=== PATIENT | female | born 1965 | race Two or more races ===

== ENCOUNTER 2024-04-23 10:32 | Emergency (ER) | payer SELFPAY ==
--- NOTE | 2024-04-23 10:33 | ECG_ITS ---
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 Measurements Intervals [place] Rate: 77 P: 49 AL: 138 QRS: 39 QRSD: 90 T: 24 QT: 369 QTc: 419 Interpretive Statements SINUS RHYTHM NONSPECIFIC T-WAVE ABNORMALITY No previous ECG available for comparison Electronically Signed On 04-23-2024 17:56:24 [employer] SUPERINTENDENT by Bhavesh Ortega M.D. [email or web address] [id number]
--- NOTE | 2024-04-23 10:34 | XR_ITS ---
WS: [id number] XR chest 1V portable [id number] REASON FOR EXAM: Chest pain FINDINGS: Mild tortuosity and ectasia of the thoracic aorta with normal heart size. Calcified granulomatous disease in both hemithoraces. No acute pulmonary parenchymal or pleural abnormality. Mild degenerative spondylosis in the thoracic spine. XR/XR chest 1V portable [id number] IMPRESSION: No acute chest abnormality.
[2024-04-23 10:36] VITALS: BP 140/82; PULSE 79; RESP 16; TEMP 36.6; O2SAT 99
[2024-04-23 11:16] LABS: Basophils % 0.8 %; Eosinophils # 0.1 10^3/uL (0.0-0.8); Eosinophils % 2.5 %; Hematocrit 43.7 % (36-47); Lymphocytes # 2.1 10^3/uL (0.8-4.8); Lymphocytes % 39.8 %; Mean Corpuscular HGB Conc 30.7 g/dL (30-55); Mean Corpuscular Hemoglobin 20.4 pg (27-33); Mean Corpuscular Volume 66.5 fl (85-98); Mean Platelet Volume 10.9 fL (7.4-10.4); Monocytes # 0.3 10^3/uL (0.2-0.9); Monocytes % 4.8 %; Neutrophils # 2.67 10^3/uL (1.8-7.7); Neutrophils % 51.7 %; Nucleated Red Blood Cells % 0 %; Platelet Count 276 10^3/cmm (157-399); Red Blood Count 6.57 10^6/uL (3.85-5.65); Red Cell Distribution Width 17.2 % (12.1-15.1); White Blood Count 5.17 10^3/uL (3.29-11.43)
[2024-04-23 11:33] LABS: Alanine Aminotransferase 18 U/L (0-33); Alkaline Phosphatase 85 U/L (35-105); Anion Gap 18.6 (5-19); Aspartate Amino Transferase 17 U/L (0-32); Blood Urea Nitrogen 16 mg/dL (8-23); Calcium 9.3 mg/dL (8.5-10.5); Carbon Dioxide 24 mmol/L (22-29); Chloride 97 mmol/L (98-107); Creatinine Clr Calc Pharmacy 70.9225; Globulin 3.1 g/dL (1.3-4.6); Glomerular Filtration Rate 63.9 mL/min (90-130); Glucose 171 mg/dL (65-115); Osmolality Calculated 287 mOsm/kg (285-295); Potassium 3.6 mmol/L (3.5-5.1); Sodium 136 mmol/L (136-145); Total Bilirubin 0.6 mg/dL (0.15-1.2); Total Protein 7.1 g/dL (6.6-8.7)
[2024-04-23 11:38] LABS: Troponin(5th) Baseline < 6 ng/L (0-10)
--- NOTE | 2024-04-23 12:33 | ECG_ITS ---
[facility]: 2024-[facility]23 Pat Name: Dorothea Zhang Department: Room: Gender: Female Limnologist: : 1965 Requested By: David Gipson Order Number: [id number] Jose MD: Bhavesh Ortega M.D. Measurements Intervals [place] Rate: 60 P: 52 VT: 140 QRS: 34 QRSD: 80 T: 40 QT: 392 QTc: 394 Interpretive Statements SINUS RHYTHM POSSIBLE LEFT ATRIAL ENLARGEMENT [-0.1mV P-WAVE IN V1/V2] Compared to ECG 04/23/2024 10:46:02 T-wave abnormality no longer present Electronically Signed On 04-23-2024 18:30:30 [employer]LF DRIER OPERATOR by Bhavesh Ortega M.D. [email or web address] [id number]
[2024-04-23 13:11] LABS: Troponin 5 2HR 6.47 ng/L (0-10); Troponin 5 2HR Delta 0.47001 ABS# (0-10)
[2024-04-23 14:14] VITALS: BP 122/69; PULSE 74; O2SAT 95
--- NOTE | 2024-04-23 14:14 | W.ED.CHESTPA ---
HPI - Chest Pain General: Chief Complaint: Chest Pain Stated Complaint: chest pain Time Seen by Provider: 04/23/24 10:34 Source: patient Mode of arrival: ambulatory Limitations: language barrier (Interpreted by absorption operator through the computer.) History of Present Illness: Patient presents to the ER with complaints of chest pressure and tightness that feels like a straight jacket or a big tight hug. It wraps around her chest through her arms through her back. Patient went to the clinic on Sunday she had an EKG and lab work and she thinks they set her up with an appointment for a manual training teacher. They told her if the chest pain comes back to go to the ER for further workup. The chest pain came back today but not quite as strong. The patient is not having the pain currently. She has no cardiac history is never had a heart attack or stroke. Patient also complains of intermittent pain and swelling to her left lower extremity. These do not correlate with the chest pressure or pain. She said she has injured her left side more so in the past. Patient does not have a history of blood clots. Related Data Previous Rx's ?Medication ?Instructions ?Recorded aspirin 325 mg tablet 325 mg PO DAILY #90 tabs 04/23/24 meloxicam 15 mg tablet 15 mg PO DAILY PRN pain #30 tabs 04/23/24 nitroglycerin 0.4 mg sublingual 0.4 mg sublingual Q5M PRN chest 04/23/24 tablet pain #90 tabs Allergies Allergy/AdvReac Type Severity Reaction Status Date / Time No Known Allergies Allergy Verified 04/23/24 10:45 Review of Systems General: Reports: 10 or more systems reviewed and unremarkable except in HPI and below Physical Exam Const: COMMON NORMALS: no acute distress, average body habitus, patient oriented x3, healthy appearing, alert and well nourished HENMT: COMMON NORMALS: normocephalic, atraumatic, hearing grossly normal bilaterally, external ears normal, Normal external nose present, moist oral mucous membranes and oropharynx normal HEAD & SCALP: normocephalic and atraumatic NOSE: Normal external nose present EXTERNAL EAR: Yes external ears normal Neck/C-Spine: COMMON NORMALS: full ROM, no lymphadenopathy, supple, no meningeal signs, no JVD and Thyroid normal THYROID: Thyroid normal Chest: COMMONS NORMALS: normal inspection of the chest and normal palpation of entire chest wall Resp: COMMON NORMALS: normal respiratory effort, No retractions, No use of accessory muscles and clear to auscultation bilaterally AUSCULTATION: clear to auscultation bilaterally Cardio: COMMON NORMALS: no JVD, regular rate, regular rhythm, S1 normal heart sound present, S2 normal heart sound present, No gallops present (Cardio), No clicks present (Cardio), No murmurs present (Cardio) and No rub (Cardio) RATE: regular rate RHYTHM: regular rhythm HEART SOUNDS: S1 normal heart sound present and S2 normal heart sound present GI: COMMON NORMALS: Normal to inspection, nondistended, normoactive bowel sounds present, Soft to palpation, non-tender, No hepatosplenomegaly present and no masses PALPATION: Yes Soft to palpation and Yes No hepatosplenomegaly present Neuro: COMMON NORMALS: patient oriented x3 SENSORIUM/ORIENTATION: Yes alert MENINGEAL SIGNS: Yes no meningeal signs Course Vital Signs: Vital signs: Vital Signs Temperature 97.9 F 04/23/24 10:36 Pulse Rate 79 04/23/24 10:36 Respiratory Rate 16 04/23/24 10:36 Blood Pressure 140/82 04/23/24 10:36 Pulse Oximetry 99 04/23/24 10:36 Oxygen Delivery Me thod Room Air 04/23/24 10:36 MDM - Chest Pain Medical Decision Making With help of spanish interpreter we will perform a history and physical as well as have labs drawn chest x-ray serial EKGs serial troponins, all of which was essentially negative. Initial troponin was six 2-hour troponin was 6.4, no EKG changes, chest x-ray was normal. Says like the patient may have already been referred to the manual training teacher. With a negative workup here. Will discharge patient home on an anti-inflammatory for her leg pain and some nitro for her heart. Patient was informed to follow back up with the clinic or to come back to the ER if she is chest pain worsened and keep her appointment with a manual training teacher. Lab Data I reviewed the patient's lab results. 04/23/24 10:59 04/23/24 10:59 Radiology Impressions Chest X-Ray 04/23/24 10:34 IMPRESSION: No acute chest abnormality. Laboratory Results WBC 5.17 10^3/uL (3.29-11.43) 04/23/24 10:59 RBC 6.57 10^6/uL (3.85-5.65) H 04/23/24 10:59 Hgb 13.40 g/dL (11.27-16.99) 04/23/24 10:59 Hct 43.7 % (36-47) 04/23/24 10:59 MCV 66.5 fl (85-98) L 04/23/24 10:59 MCH 20.4 pg (27-33) L 04/23/24 10:59 MCHC 30.7 g/dL (30-55) 04/23/24 10:59 RDW 17.2 % (12.1-15.1) H 04/23/24 10:59 Plt Count 276 10^3/cmm (157-399) 04/23/24 10:59 MPV 10.9 fL (7.4-10.4) H 04/23/24 10:59 Neut % (Auto) 51.7 % 04/23/24 10:59 Lymph % (Auto) 39.8 % 04/23/24 10:59 Mcmullen % (Auto) 4.8 % 04/23/24 10:59 Eos % (Auto) 2.5 % 04/23/24 10:59 Baso % (Auto) 0.8 % 04/23/24 10:59 Neut # (Auto) 2.67 10^3/uL (1.8-7.7) 04/23/24 10:59 Lymph # (Auto) 2.1 10^3/uL (0.8-4.8) 04/23/24 10:59 Mcmullen # (Auto) 0.3 10^3/uL (0.2-0.9) 04/23/24 10:59 Eos # (Auto) 0.1 10^3/uL (0.0-0.8) 04/23/24 10:59 Baso # (Auto) 0.0 10^3/uL (0.0-0.1) 04/23/24 10:59 Nucleated RBC % (auto) 0 % 04/23/24 10:59 Nucleated RBCs # 0.0 /100WBC 04/23/24 10:59 Sodium 136 mmol/L (136-145) 04/23/24 10:59 Potassium 3.6 mmol/L (3.5-5.1) 04/23/24 10:59 Chloride 97 mmol/L (98-107) L 04/23/24 10:59 Carbon Dioxide 24 mmol/L (22-29) 04/23/24 10:59 Anion Gap 18.6 (5-19) 04/23/24 10:59 BUN 16 mg/dL (8-23) 04/23/24 10:59 Creatinine 0.9 mg/dL (0.5-0.9) 04/23/24 10:59 GFR Calculation 63.9 mL/min (90-130) L 04/23/24 10:59 Glucose 171 mg/dL (65-115) H 04/23/24 10:59 Calculated Osmolality 287 mOsm/kg (285-295) 04/23/24 10:59 Calcium 9.3 mg/dL (8.5-10.5) 04/23/24 10:59 Total Bilirubin 0.6 mg/dL (0.15-1.2) 04/23/24 10:59 AST 17 U/L (0-32) 04/23/24 10:59 ALT 18 U/L (0-33) 04/23/24 10:59 Alkaline Phosphatase 85 U/L (35-105) 04/23/24 10:59 Troponin T Baseline < 6 ng/L (0-10) 04/23/24 10:59 Troponin T 120 Minute 6.47 ng/L (0-10) 04/23/24 12:44 Delta Troponin T 0.43505 ABS# (0-10) 04/23/24 12:44 Total Protein 7.1 g/dL (6.6-8.7) 04/23/24 10:59 Albumin 4.0 g/dL (3.5-5.2) 04/23/24 10:59 Globulin 3.1 g/dL (1.3-4.6) 04/23/24 10:59 All radiology interpretation(s) finalized by discharge Discharge Plan Discharge Patient Disposition: Home Clinical Impression: Leg edema, left Chest pain Qualifiers: Chest pain type: unspecified Qualified Code(s): R07.9 - Chest pain, unspecified Condition: Stable Prescriptions: New meloxicam 15 mg tablet 15 mg PO DAILY PRN (Reason: pain) Qty: 30 0RF nitroglycerin 0.4 mg tablet, sublingual 0.4 mg sublingual Q5M PRN (Reason: chest pain) Qty: 90 0RF Rx Instructions: do not exceed 3 doses per episode aspirin 325 mg tablet 325 mg PO DAILY Qty: 90 0RF Discharge Orders: Discharge ED (Routine); Ordered 04/23/24 Ordered By: David Gipson Referrals: Margarita Reddy DO [Primary Care Provider] - Patient Instructions: Chest Pain (ED), Edema (ED) Activity Restrictions/Additional Instructions: All of your cardiac test through the ER came back normal. This makes it less likely to be cardiac pain. You have already been referred to a manual training teacher Dr. Rodriguez, on May 08, 2024 at 1:30 PM. He had been prescribed 3 medicines please take them all as directed. Please follow-up with your family practice physician within the next 7 days for further evaluation and treatment. If your chest pain continues, worsens or is or changes please feel free to return to the ER for further evaluation. Print Language: Telugu Coding Level of Care Code ED [place] Supervisor for Ivan Mcbride
[2024-04-23 15:10] VITALS: BP 102/54; PULSE 86; O2SAT 96
== END 2024-04-23 15:13 | disposition home or self-care (01) ==
PROVIDERS: Emergency Provider Emergency Medicine; PCP Family Medicine
DX: R60.0 Localized edema (principal); R07.9 Chest pain, unspecified; Z79.82 Long term (current) use of aspirin
CPT/HCPCS: 36415; 71045; 80053; 84484; 85025; 93005; 99285

== ENCOUNTER 2024-08-20 10:54 | Outpatient (CLI) | payer SELFPAY ==
--- NOTE | 2024-08-20 11:10 | XR_ITS ---
WS: [id number] Cervical spine, 5 views including both obliques, 08/20/2024 Clinical Data: NECK BACK PAIN Comparison: None. Findings: No compression fractures are seen. There is degenerative disc narrowing at C5-C6 and C6-C7 with anterior and posterior osteophytes. On the oblique films there is neural foraminal encroachment at C5-C6 and C6-C7 bilaterally. There is facet joint arthritis especially on the left from C4-C5 through C7-T1. There is no prevertebral soft tissue swelling. The odontoid is unremarkable. The soft tissues of the neck and the lung apices are normal. XR/XR cervical spine 4-5V [id number] Impression: 1. Degenerative disc narrowing at C5-C6 and C6-C7 with anterior and posterior o steophytes. 2. Neural foraminal encroachment at C5-C6 and C6-C7. 3. Facet joint arthritis C4-C5 through C7-T1
--- NOTE | 2024-08-20 11:10 | XR_ITS ---
WS: [email or web address] Thoracic spine, 3 views, 08/20/2024 Clinical Data: NECK BACK PAIN Comparison: None. Findings: No compression fractures are seen. The disc heights are normal. There is mild osteoarthritis of the anterior thoracic vertebral bodies. The paravertebral regions are normal. 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
== END 2024-08-20 10:55 | disposition home or self-care (01) ==
PROVIDERS: PCP Family Medicine; Visit Provider Family Medicine
DX: M47.814 Spondylosis without myelopathy or radiculopathy, thoracic region (principal); M48.02 Spinal stenosis, cervical region
CPT/HCPCS: 72050; 72072

== ENCOUNTER 2024-12-23 14:08 | Outpatient (CLI) | payer OTHER, SELFPAY ==
--- NOTE | 2024-12-23 14:30 | MM_ITS ---
WS: [id number] BILATERAL 3D TOMOSYNTHESIS DIGITAL SCREENING MAMMOGRAPHY WITH CAD CLINICAL INFORMATION: SCREENING MAMMOGRAM HISTORY: Screening mammogram. No current complaints. COMPARISON: None available. New baseline. TECHNIQUE: Bilateral CC and MLO views. FINDINGS: Scattered fibroglandular densities bilaterally. Ovoid nodule upper inner RIGHT breast measuring 1.6 cm. Recommend further evaluation with RIGHT breast diagnostic mammography and ultrasound. Unremarkable LEFT breast. MM/MM scr tomosynthesis [id number] IMPRESSION: DENSITY: There are scattered areas of fibroglandular density. BI-RADS: 0 - Incomplete: Need additional imaging evaluation. FOLLOW UP: Need Additional Imaging Recommend RIGHT breast diagnostic mammography and ultrasound.
== END 2024-12-23 14:09 | disposition home or self-care (01) ==
LOC: RAD 14:15
PROVIDERS: PCP Family Medicine; Visit Provider Family Medicine
DX: Z12.31 Encounter for screening mammogram for malignant neoplasm of breast (principal); R92.323 Mammographic fibroglandular density, bilateral breasts; N63.10 Unspecified lump in the right breast, unspecified quadrant
CPT/HCPCS: 77063; 77067

== ENCOUNTER 2025-01-15 10:27 | Outpatient (CLI) | payer SELFPAY ==
--- NOTE | 2025-01-15 10:50 | MM_ITS ---
WS: [id number] RIGHT 3D TOMOSYNTHESIS DIGITAL MAMMOGRAPHY WITH CAD CLINICAL INFORMATION: R ABNORMAL MAMMOGRAM HISTORY: Additional views TECHNIQUE: 3 views of the right breast were obtained. FINDINGS: Scattered fibroglandular densities of the right breast. Persistent ovoid nodule upper inner RIGHT breast measuring 1.6 cm. Ultrasound is pending. ULTRASOUND BREAST RIGHT TECHNIQUE: Ultrasound right breast focused area of concern. CLINICAL INFORMATION: R ABNORMAL MAMMOGRAM FINDINGS: Ultrasound RIGHT breast at the 1 o'clock position 4 cm from the nipple. This demonstrates an ovoid nodule with internal echogenicity likely representing fatty contents. This is probably benign and recommend 6-month follow-up to confirm stability. This may represent a fibroadenolipoma. Biopsy not recommended due to risk of rupture of the internal fat contents with the risk of abscess/infection MM/MM diag RT tomosynthesis [id number] IMPRESSION: DENSITY: There are scattered areas of fibroglandular density. BI-RADS: 3 - Probably Benign. FOLLOW UP: 6 Month Follow-up Recommend 6-month follow-up RIGHT breast diagnostic mammography and ultrasound
== END 2025-01-15 10:28 | disposition home or self-care (01) ==
PROVIDERS: PCP Family Medicine; Visit Provider Family Medicine
DX: R92.8 Other abnormal and inconclusive findings on diagnostic imaging of breast (principal); R92.322 Mammographic fibroglandular density, left breast; N63.41 Unspecified lump in right breast, subareolar
CPT/HCPCS: 76642; 77061; G0279

== ENCOUNTER 2025-02-13 11:11 | Outpatient (CLI) | payer OTHER, SELFPAY ==
--- NOTE | 2025-02-13 11:34 | USCV_ITS ---
Dorothea Zhang Age: 59 Gender: F : 1965 Exam Date: 02/13/2025 11:39 Ordering Phys: Margarita Reddy DO Technologist: DASHAWN [place] [facility] [place]: LEFT LEG PAIN HISTORY: Lower extremity pain. PROCEDURES: Venous duplex imaging was performed in only the left lower extremity. The following venous structures were evaluated: common femoral vein, profunda vein, proximal portion of the greater saphenous vein, superficial femoral vein, and the popliteal vein. In addition, the posterior tibial and peroneal trunk were evaluated. FINDINGS: Normal 2-D Doppler and augmentation and compressibility throughout the lower extremity venous structures. Additional imaging through the proximal calf veins also reveals no thrombus. Limited evaluation of the greater saphenous vein is patent with no thrombus. CONCLUSIONS No evidence of left lower extremity DVT. Franco Pantoja MD (Electronically Signed) Final Date: 13 February 2025 14:55 S
== END 2025-02-13 11:12 | disposition home or self-care (01) ==
LOC: RAD 11:18
PROVIDERS: PCP Family Medicine; Visit Provider Family Medicine
DX: M79.89 Other specified soft tissue disorders (principal); M79.662 Pain in left lower leg
CPT/HCPCS: 93971

== ENCOUNTER 2025-02-24 15:10 | Outpatient (CLI) | payer OTHER, SELFPAY ==
--- NOTE | 2025-02-24 16:00 | XRR_ITS ---
PROCEDURE INFORMATION: Exam: XR Bilateral Hips Exam date and time: 02/24/2025 4:10 PM Age: 59 years old Clinical indication: Hip pain; Bilateral; Additional info: Bilateral hip pain TECHNIQUE: Imaging protocol: Radiologic exam of the bilateral hips. Views: 2 views of hips with pelvis when performed. COMPARISON: CR XR lumbar spine 6V w f/e [id number] 02/24/2025 4:10 PM FINDINGS: Bones/joints: Unremarkable. No acute fracture. Soft tissues: Unremarkable. XR/XR hip BI 2V wo/w pel [id number] IMPRESSION: No acute findings.
--- NOTE | 2025-02-24 16:01 | XRR_ITS ---
PROCEDURE INFORMATION: Exam: XR Lumbosacral Spine Exam date and time: 02/24/2025 4:10 PM Age: 59 years old Clinical indication: Low back pain; Additional info: Lumbosacral spondylosis TECHNIQUE: Imaging protocol: Radiologic exam of the lumbosacral spine. Views: 6 or more views. Including flexion and extension views. COMPARISON: CR XR hip BI 2V wo/w pel [id number] 02/24/2025 4:10 PM FINDINGS: Bones/joints: No acute fracture. Vertebral body heights are maintained. Minimal grade 1 retrolisthesis of L3 on L4 without significant change between flexion/extension. Mild degenerative changes with intervertebral disc space height loss and endplate osteophytes most pronounced at L2-L3, L3-L4, and L4-L5. Multilevel bilateral facet arthropathy in the mid to lower lumbar spine. Soft tissues: Unremarkable. Vasculature: Scattered atherosclerotic aortic calcifications. XR/XR lumbar spine 6V w f/e [id number] IMPRESSION: 1. No acute findings. 2. Mild multilevel lumbar spondylosis and facet arthropathy.
--- NOTE | 2025-02-24 16:02 | XRR_ITS ---
PROCEDURE INFORMATION: Exam: XR Left Knee Exam date and time: 02/24/2025 4:10 PM Age: 59 years old Clinical indication: Pain; Knee; Left; Additional info: Lt knee pain TECHNIQUE: Imaging protocol: Radiologic exam of the left knee. Views: 3 views. COMPARISON: No relevant prior studies available. FINDINGS: Bones/joints: No acute fracture or dislocation. Mild narrowing of the lateral end patellofemoral compartmenst with small marginal osteophytes. Soft tissues: Normal. XR/XR knee LT 3V* [id number] IMPRESSION: 1. No acute osseous findings. 2. Mild degenerative changes.
--- NOTE | 2025-02-24 16:03 | XRR_ITS ---
PROCEDURE INFORMATION: Exam: XR Right Knee Exam date and time: 02/24/2025 4:10 PM Age: 59 years old Clinical indication: Pain; Knee; Right; Additional info: RT knee pain TECHNIQUE: Imaging protocol: Radiologic exam of the right knee. Views: 3 views. COMPARISON: No relevant prior studies available. FINDINGS: Bones/joints: No acute fracture or dislocation. Mild medial compartment narrowing. Soft tissues: Normal. XR/XR knee RT 3V* [id number] IMPRESSION: No acute osseous findings.
== END 2025-02-24 15:11 | disposition home or self-care (01) ==
PROVIDERS: PCP Family Medicine; Visit Provider Student in an Organized Health Care Education/Training Program
DX: M25.552 Pain in left hip (principal); M25.551 Pain in right hip; M47.817 Spondylosis without myelopathy or radiculopathy, lumbosacral region; M25.561 Pain in right knee; M22.2X2 Patellofemoral disorders, left knee; M25.762 Osteophyte, left knee; M51.360 Other intervertebral disc degeneration, lumbar region with discogenic back pain only; M43.16 Spondylolisthesis, lumbar region; M47.816 Spondylosis without myelopathy or radiculopathy, lumbar region
CPT/HCPCS: 72114; 73521; 73562